=== PATIENT | male | born 1985 | race African-American/Black ===

== ENCOUNTER 2018-01-22 08:59 | Emergency (ER) | payer SELFPAY ==
[~2018-01-22] VITALS: Ht 175.3 cm; Wt 72.0 kg
[2018-01-22] MEDS ORDERED: HYDROCODONE/ACETAMINOPHEN 5/325MG TABLET PO ONE (10:30)
[2018-01-22 12:49] VITALS: BP 98/51
== END 2018-01-22 12:51 | disposition home or self-care (01) ==
LOC: ER 09:43
DX: S20.20XA Contusion of thorax, unspecified, initial encounter (principal); V43.52XA Car driver injured in collision with other type car in traffic accident, initial encounter; Y93.89 Activity, other specified; Y92.488 Other paved roadways as the place of occurrence of the external cause
CPT/HCPCS: 71045; 99283